=== PATIENT | female | born 1995 | race Caucasian/White ===

== ENCOUNTER 2018-02-03 07:36 | Emergency (ER) | payer BC, SELFPAY ==
[2018-02-03 07:36] VITALS: BP 159/108; PULSE 107; RESP 20; TEMP 36.9; O2SAT 96; BMI 52.7
--- NOTE | 2018-02-03 07:59 | US_ITS ---
STUDY: ABDOMINAL ULTRASOUND - RIGHT UPPER QUADRANT REASON FOR VISIT: Female, 22 years old. Right upper quadrant pain. TECHNIQUE: Ultrasound evaluation of the right upper quadrant was performed with real-time and static patel-scale imaging. TECHNICAL QUALITY: Limited. Examination limited due to obesity. COMPARISON: None. FINDINGS: Liver: The liver measures 18.4 cm. There is increased echogenicity consistent with fatty infiltration. The bile ducts are within normal limits. There is hepatic color flow. The direction of portal flow is hepatopetal. There is no demonstrated mass lesion. Gallbladder: Normal distended gallbladder. The gallbladder wall measures 2.7 mm. There is a negative sonographic Kline's sign. There is no pericholecystic fluid. There are no gallstones. Common Bile Duct (C.B.D.): The common bile duct measures 2.4 mm. Pancreas: There is nonvisualization of the pancreas due to overlying bowel gas. Right Kidney: Normal size of the right kidney. The right kidney measures 12.3 cm x 5.9 cm x 4.6 cm. Normal renal cortex. The right cortex measures 1.5 cm. There is no demonstrated renal mass or cyst. There is no right hydronephrosis. US/Gallbladder IMPRESSION: Borderline hepatomegaly and fatty infiltration of the liver. Electronically Signed: Zhen Paz MD at 9:26 EDT Tel [phone], Service support ,
--- NOTE | 2018-02-03 08:00 | ED.VISSUMM ---
- ER Visit Summary Date of Service: 02/03/18 Chief Complaint: Right upper quadrant abdominal pain History of Present Illness: The patient is a 22 F no significant past medical history the only prior surgery was a tonsillectomy. No prior abdominal surgeries. Patient states for the last weeks last Tuesday when she was on vacation she is developed constant and worsening right upper quadrant abdominal pain. Initially she thought was a pulled muscle but now does not believe that to be so. She denies any nausea, vomiting. She has had some loose bowel movements over the last week. Her last menstrual period just ended the other day. She states it was normal.. She denies any dysuria, fever or hematuria. Does not really state there is any food intolerances. She has never had pain like this before. She denies any melena. Physical Examination: Well-appearing young female. Vital signs are stable and afebrile. No distress. H EENT exam unremarkable. Neck nontender. Lungs clear to auscultation bilaterally. Heart regular rhythm rate about 100 no murmur. Abdomen is soft. She is mildly obese. Normal bowel sounds no peritoneal signs. The only tenderness she has in the right upper quadrant. Other quadrants of the abdomen include nontender. No hernias or masses. No signs of obstruction. Positive bowel sounds. No Kline sign. Absolutely no right lower quadrant nor McBurney's point tenderness. No signs of trauma to the abdominal wall. She is moving all 4 extremities. They are neurovascularly intact. Back is nontender without CVA tenderness. Neurologically she is awake and alert. Test Results: All laboratory work was negative including a normal CBC with a white count of 6. Normal H&H. Chemistry panel normal. Normal creatinine and gap. Normal liver enzymes. Normal lipase. Serum test was negative. Right upper quadrant ultrasound showed no gallstones or pericholecystic fluid. Negative Kline sign. Emergency Department Course and Treatment: Patient has abdominal pain in the right upper quadrant. This may or may not be secondary to her gallbladder. Labs will be obtained. Along with IV Toradol for pain. Treatment Plan: Repeat exam patient is doing well at 0 940. Abdomen is benign. She will be discharged home with outpatient follow-up. Disposition: Discharge Impression: Acute right upper quadrant abdominal pain of uncertain etiology This note was generated with [employer] software. It may contain incorrect words, spelling, and punctuation that were not noted in review of the chart prior to signing ED Disposition - Plan for ED Patient: Chief Complaint: Abd Pain Referrals: Britany Lu DO [Primary Care Provider] -
[2018-02-03 08:08] LABS: Absolute Lymphocyte Count 2.01 X10^3/ul (0.83-4.51); Basophil# 0.02 X10^3/uL; Basophil% 0.3 % (0-1); Eosinophil# 0.14 X10^3/uL; Eosinophils% 2.1 % (0-5); Hematocrit 37.2 % (37-47); Hemoglobin 12.2 g/dl (12.0-15.0); Lymphocyte # 2.01 X10^3/ul (4.0); Mean Corp Hgb Conc 32.8 g/gl (32-36); Mean Corpuscular Hgb 27.8 pg (27.0-32.0); Mean Corpuscular Volume 84.7 fL (81-99); Mean Platelet Vol. 9.9 fl (6.2-12.0); Monocyte# 0.54 X10^3/uL; Neutrophil # 3.99 X10^3/uL (2.7-7.7); Neutrophil % 59.5 % (47-70); Platelet Count 254 K/mm3 (150-450); RBC Distribution Width CV 14.8 % (11.6-14.6); RBC Distribution Width SD 44.8 fl (35.1-43.9); Red Blood Count 4.39 M/mm3 (4.2-5.4); White Blood Count 6.7 K/mm3 (4.4-11.0)
[2018-02-03 08:09] LABS: POSITIVE COUNT NO; POSITIVE DIFFERENTIAL NO; POSITIVE MORPHOLOGY NO
[2018-02-03] MEDS: Ketorolac 30 MG/ML Syringe IV (08:11)
[2018-02-03 08:21] LABS: AST(SGOT) 22 U/L (15-37); Alanine Aminotransfer ALT/SGPT 29 U/L (13-56); Albumin, Serum 3.7 g/dL (3.2-5.0); Alkaline Phosphatase 53 U/L (45-117); Anion Gap 9 (5-15); BUN 17 mg/dL (7-18); BUN/Creat Ratio 20.4 RATIO (10-20); Bilirubin, Direct 0.09 mg/dL (0.00-0.30); Calcium,Total 8.4 mg/dL (8.5-10.1); Chloride 105 mmol/L (98-107); Creatinine, Serum 0.83 mg/dL (0.55-1.02); EST Glomerular Filtration Rate 91 mL/min (>60); Est Glom Filt Rate - Afr Amer 110 mL/min (>60); Estimated Creatinine Clearance 99.53 ml/min; Globulin 4.2 g/dL (2.2-4.2); Glucose 75 mg/dL (74-106); Lipase 75 U/L (73-393); Protein, Total 7.9 g/dL (6.4-8.2); Sodium Level 140 mmol/L (136-145)
[2018-02-03 08:24] LABS: Pregnancy, Serum, hCG Quali. NEGATIVE Negative (0-9 Nonpreg)
--- NOTE | 2018-02-03 09:42 | ED.DEP ---
ED Disposition - Plan for ED Patient: Disposition: Home or Assisted Living Chief Complaint: Abd Pain Instructions: ED Abdominal Pain Unkn Cause Referrals: Angus Larson MD [STAFF PHYSICIAN] - Additional Instructions: Follow-up for further evaluation. Return to the ER if increasing pain, fever, black or bloody stool or throwing up blood or feeling a lot worse.
[2018-02-03 09:51] VITALS: BP 125/75; PULSE 75; RESP 15; O2SAT 98
== END 2018-02-03 09:53 | disposition home or self-care (01) ==
PROVIDERS: Emergency Provider Emergency Medicine; Family Provider Family Medicine; PCP Family Medicine
DX: R10.11 Right upper quadrant pain (principal); Z72.0 Tobacco use
CPT/HCPCS: 76705; 80048; 80076; 83690; 84703; 85025; 99283; A4216